=== PATIENT | female | born 1985 | race Caucasian/White ===

== ENCOUNTER 2016-12-06 14:16 | Emergency (ER) | payer OTHER ==
[~2016-12-06] VITALS: Ht 165.1 cm; Wt 63.5 kg
[2016-12-06 14:26] VITALS: BP_SYST 124
[2016-12-06 15:42] VITALS: BP_SYST 124
== END 2016-12-06 15:42 | disposition home or self-care (01) ==
LOC: SED 14:18
DX: M25.462 Effusion, left knee (principal)
CPT/HCPCS: 73560-TC; 81025; 99284